=== PATIENT | female | born 1985 | race Caucasian/White ===

== ENCOUNTER 2016-11-28 23:01 | Emergency (ER) | payer MEDICAID, OTHER ==
[~2016-11-28 23:01] MED LIST: ADVI200C9 PO; CHLO.12%30 SSP; IBUP800T23 PO; PENI500T PO; PROZ20CA11 PO
--- NOTE | 2016-11-28 23:43 | PD ---
HPI Chief Complaint Labor check Date Seen: Nov 28, 2016 Time Seen: 23:38 Travel History International Travel<30 Days: No Contact w/Intl Traveler<30Days: No Known Affected Area: No History of Present Illness HPI 31-year-old 4 para 3 at 38+ weeks gestation who reports having had some bloody mucus discharge today and contractions now every 45 minutes. She denies leakage of fluid. Weeks Gestation: 38 History Past Medical History Medical History: Denies Significant Hx Obstetric History Obstetric History 3 term vaginal deliveries She receives care locally and reports no abnormalities during this . Past Surgical History Surgical History: No Previous Surgery Family History Family History: Negative Social History Alcohol Use: No Tobacco Use: No Substance Abuse: No Allergies-Medications (Allergen,Severity, Reaction): Coded Allergies: No Known Allergies (Unverified , 07/19/14) Home Meds Active Scripts Ibuprofen (Ibuprofen) 800 Mg Tab, 800 MG PO TID Y for PAIN, #30 TAB Prov:Marlen Dos Santos 07/19/14 Chlorhexidine Gluconate (Peridex Oral Rinse) 0.12 % Quiana, 15 ML SSP BID, #1 BOTTLE Prov:Marlen Dos Santos 07/19/14 Penicillin V Potassium (Pen Vk) 500 Mg Tab, 500 MG PO TID for 10 Days, TAB Prov:Marlen Dos Santos 07/19/14 Reported Medications Ibuprofen (Advil) 200 Mg Cap, 200 MG PO Q4H, CAP 07/19/14 Fluoxetine Hcl (Prozac) 20 Mg Cap, 20 MG PO DAILY, CAP 04/18/14 Review of Systems Except as stated in HPI: all other systems reviewed are Neg Physical Exam Narrative GENERAL: Well-nourished, well-developed patient. SKIN: Warm and dry. HEAD: Normocephalic and atraumatic. EYES: No scleral icterus. No injection or drainage. ENT: No nasal drainage noted. Mucous membranes pink. Airway patent. NECK: Supple, trachea midline. No JVD. CARDIOVASCULAR: Regular rate and rhythm without murmurs, gallops, or rubs. RESPIRATORY: Breath sounds equal bilaterally. No accessory muscle use. ABDOMEN/GI: Abdomen soft, non-tender, bowel sounds present, no rebound, no guarding Gravid to [-] weeks size Fundal Height: [-38] GENITOURINARY: External Genitalia: intact and normal in appearance BUS glands: [Negative-] Cervix: [-] Dilatation: [-2] Effacement: [-25] Station: [-High] Presentation: [v-] Membranes: [intact] Uterine Contractions: [-Mild irregular] FHT's: Category: [-1] Baseline: [-] Reactive: [-Yes] Variability: [-] Decels: [-] EXTREMITIES: No cyanosis or edema. BACK: Nontender without obvious deformity. No CVA tenderness. NEUROLOGICAL: Awake and alert. Motor and sensory grossly within normal limits. Five out of 5 muscle strength in all muscle groups. Normal speech. MDM Medical Record Reviewed: Yes Narrative Course / MDM Assessment: 38+ week intrauterine with infrequent irregular contractions Plan: Labor precautions were reviewed with the patient. She was to follow up for her routine visit this week. Diagnosis Diagnosis: Primary Impression: 38 weeks gestation of Additional Impression: Irregular uterine contractions Disposition: 01 DISCHARGE HOME Condition: Good Miguel Logan MD Nov 28, 2016 23:43
== END 2016-11-29 01:05 | disposition home or self-care (01) ==
LOC: HOBED 23:01
DX: O62.2 Other uterine inertia (principal); Z3A.38 38 weeks gestation of pregnancy
CPT/HCPCS: 59025